=== PATIENT | male | born 1975 | race Caucasian/White ===

== ENCOUNTER 2021-04-24 14:55 | Emergency (ER) | payer SELFPAY ==
--- NOTE | 2021-04-24 18:28 | ER ---
Nurse's Notes [facility] Name: Kunal Wilson Age: 46 yrs Sex: Male : 1975 Arrival Date: 04/24/2021 Time: 14:57 Bed 18 Private MD: Diagnosis: Presentation: 04/24 15:13 Chief complaint: Patient states: Psoriasis to right foot, noticed rash around it last jl7 night and swelling up to calf. Coronavirus screen: At this time, the client does not indicate any symptoms associated with coronavirus-19. Ebola Screen: No symptoms or risks identified at this time. Initial Sepsis Screen: Does the patient meet any 2 criteria? No. Patient's initial sepsis screen is negative. Does the patient have a suspected source of infection? No. Patient's initial sepsis screen is negative. Risk Assessment: Do you want to hurt yourself or someone else? Patient reports no desire to harm self or others. Onset of symptoms was April 23, 2021. 15:13 Method Of Arrival: Ambulatory jl7 15:13 Acuity: SAL 3 jl7 Triage Assessment: 15:15 General: Appears in no apparent distress. uncomfortable, Behavior is calm, cooperative, jl7 appropriate for age. Pain: Complains of pain in right leg Pain currently is 5 out of 10 on a pain scale. Historical: - Allergies: 15:15 No Known Allergies; jl7 - PMHx: 15:15 Anxiety; psoriatic arthritis; psoriasis; jl7 - Immunization history:: Client reports having NOT received the Covid vaccine. - Social history:: Smoking status: Patient denies any tobacco usage or history of. Screenin:45 Abuse screen: Denies threats or abuse. Denies injuries from another. Nutritional tc5 screening: No deficits noted. Tuberculosis screening: No symptoms or risk factors identified. Fall Risk None identified. Assessment: 16:44 Derm: Reports redness, swelling to the RLE, states he has psoriasis, but states this is tc5 worse. Vital Signs: 15:13 BP 130 / 100; Pulse 84; Resp 17; Temp 98.9; Pulse Ox 100% ; Weight 77.11 kg; Height 5 jl7 ft. 11 in. (180.34 cm); Pain 5/10; 15:13 Body Mass Index 23.71 (77.11 kg, 180.34 cm) jl7 ED Course: 14:57 Patient arrived in ED. as 15:15 Triage completed. jl7 15:15 Arm band placed on right wrist. Patient placed in waiting room, Patient notified of jl7 wait time. 16:20 Saji Cano MD is Attending Physician. consuelo 16:44 Lennie Armstrong, RN is Primary Nurse. tc5 Administered Medications: No medications were administered Outcome: 18:05 Patient left the ED. aa5 18:05 Eloped from patient exam room, before seeing physician aa5 Signatures: Saji Cano MD MD kdr Martinez, Amelia as Calderon, Audri, RN RN aa5 Jennifer Esparza RN RN jlLennie Anthony, RN RN tc5 Corrections: (The following items were deleted from the chart) 15:17 15:15 PMHx: None; jl7 jl7 15:17 15:15 PMHx: Psoriasis; jl7 jl7 16:20 15:13 Acuity: SAL 4 jl7 jl7 18:27 18:27 Patient left the ED. aa5 aa5
[2021-04-24 18:42] VITALS: BP 130/100; TEMP 98.9; O2SAT 100
== END 2021-04-24 18:27 | disposition left against medical advice (07) ==
LOC: ER 14:55
DX: Z53.21 Procedure and treatment not carried out due to patient leaving prior to being seen by health care provider (principal)
CPT/HCPCS: 99281

== ENCOUNTER 2021-04-28 12:36 | Emergency (ER) | payer SELFPAY ==
[2021-04-28 13:47] LABS: Absolute Lymphocytes (CBC) 1.6 K/uL (0.7-4.9); Basophils % 0.8 % (0-1.3); Hematocrit 45.5 % (39.6-49.0); Lymphocytes % 24.8 % (15.3-44.8); MPV 7.7 fL (7.6-11.3); RBC Red Blood Cell Count 5.26 M/uL (4.33-5.43)
--- NOTE | 2021-04-28 14:51 | EDPHYS ---
Physician Documentation [facility] Name: Kunal Wilson Age: 46 yrs Sex: Male : 1975 Arrival Date: 04/28/2021 Time: 12:40 Bed 26 Private MD: ED Physician Samaria Kaba HPI: 04/28 13:25 This 46 yrs old Male presents to ER via Ambulatory with complaints of Leg jmm Pain. 13:25 The patient presents with pain, spasm. Onset: The symptoms/episode began/occurred jmm gradually, 1 week(s) ago. Modifying factors: The symptoms are alleviated by nothing. the symptoms are aggravated by. Associated signs and symptoms: Pertinent positives: swelling, Pertinent negatives fever. Treatment prior to arrival includes: no previous treatment. This is a 46-year-old male with history of anxiety, psoriasis the presents emerged part with complaints of right lower leg swelling which occurred after using new boots. Patient has had similar episodes in the past with previous psoriasis episodes.. Historical: - Allergies: 13:00 No Known Allergies; vg1 - Home Meds: 13:00 Lexapro Oral [Active]; vg1 - PMHx: 13:00 Anxiety; psoriasis; Psoriatic Arthritis; vg1 - PSHx: 13:00 None; vg1 - Immunization history:: Adult Immunizations up to date, Client reports having NOT received the Covid vaccine. - Social history:: Smoking status: Patient denies any tobacco usage or history of. ROS: 13:25 Constitutional: Negative for fever, chills, and weight loss, Cardiovascular: Negative jmm for chest pain, palpitations, and edema, Respiratory: Negative for shortness of breath, cough, wheezing, and pleuritic chest pain. 13:25 Skin: Positive for erythema. 13:25 All other systems are negative. Exam: 13:25 Constitutional: This is a well developed, well nourished patient who is awake, alert, jmm and in no acute distress. Head/Face: atraumatic. Eyes: EOMI, no conjunctival erythema appreciated ENT: Moist Mucus Membranes Neck: Trachea midline, Supple Chest/axilla: Normal chest wall appearance and motion. Cardiovascular: Regular rate and rhythm. No edema appreciated Respiratory: Normal respirations, no respiratory distress appreciated Abdomen/GI: Non distended, soft Back: Normal ROM 13:25 Skin: erythema noted to the right lower leg, scaling lesions noted along the extensor surface. 13:25 Neuro: Orientation: is normal, Mentation: is normal, Memory: is normal. 13:25 Psych: Behavior/mood is pleasant, cooperative. Vital Signs: 12:58 BP 149 / 94; Pulse 76; Resp 16; Temp 98.5; Pulse Ox 100% ; Weight 77.11 kg; Height 5 vg1 ft. 11 in. (180.34 cm); Pain 7/10; 13:35 BP 136 / 83; Pulse 67; Resp 18; Pulse Ox 100% on R/A; Pain 0/10; ld1 14:10 BP 136 / 92; Pulse 61; Resp 18; Pulse Ox 100% on R/A; Pain 0/10; ld1 12:58 Body Mass Index 23.71 (77.11 kg, 180.34 cm) vg1 MDM: 13:25 Patient medically screened. [facility] 14:49 Data reviewed: vital signs, nurses notes. Counseling: I had a detailed discussion with zahida the patient and/or guardian regarding: the historical points, exam findings, and any diagnostic results supporting the discharge/admit diagnosis, lab results, the need for outpatient follow up, to return to the emergency department if symptoms worsen or persist or if there are any questions or concerns that arise at home. ED course: Is alert and nontoxic in appearance in the ED. Most likely is a flare of psoriasis. Will treat with steroids oral and topical. Patient is otherwise advised to follow-up with dermatology and otherwise given strict return precautions. Patient understood and agrees plan of care.. 04/28 13:26 Order name: CBC with Diff [facility] 04/28 13:26 Order name: CBC with Automated Diff; Complete Time: 14:11 [facility] 04/28 13:26 Order name: Saline Lock; Complete Time: 13:29 [facility] Administered Medications: 14:51 Drug: Decadron - Dexamethasone 10 mg Route: IVP; Site: left antecubital; ld1 14:51 Follow up: Response: No adverse reaction ld1 Disposition: 18:33 Co-signature as Attending Physician, Samaria Kaba MD. ma2 Disposition Summary: 04/28/21 14:50 Discharge Ordered Location: Home [facility] Condition: Stable [facility] Diagnosis - Psoriasis, unspecified [facility] Followup: [facility] - With: Private Physician - When: 2 - 3 days - Reason: Recheck today's complaints, Continuance of care, Re-evaluation by your physician Discharge Instructions: - Discharge Summary Sheet [facility] - Psoriasis [facility] Forms: - Medication Reconciliation Form [facility] - Thank You Letter zahida - Antibiotic Education [facility] - Prescription Opioid Use [facility] Prescriptions: - triamcinolone acetonide 0.5 % Topical cream - apply 1 application by TOPICAL route 3 times per day; 1 tube; Refills: 0, [facility] Product Selection Permitted - Prednisone 20 mg Oral Tablet - take 3 tablets by ORAL route once daily for 12 days Please take three tabs a jmm day daily for 3 days, then take two tabs daily for 3 days, then take one tab daily for 3 days, then take one half tab daily for 3 days; 20 tablet; Refills: 0, Product Selection Permitted Signatures: Dispatcher [employer] EDMS Jagdeep King PA PA jmm Alzahri, Mohammad, MD MD ma2 Corazon Gates RN RN vg1 Demetria Luong RN RN ld1
--- NOTE | 2021-04-28 14:51 | ER ---
Nurse's Notes [facility] Name: Kunal Wilson Age: 46 yrs Sex: Male : 1975 Arrival Date: 04/28/2021 Time: 12:40 Bed 26 Private MD: Diagnosis: Psoriasis, unspecified Presentation: 04/28 12:58 Chief complaint: Patient states: Right leg pain for since 04/20/21, states leg is vg1 swollen compared to left leg. States has hx of psoriasis and it effects Right knee at times. Coronavirus screen: Vaccine status: Patient reports being unvaccinated. Client denies travel out of the [place] in the last 14 days. Ebola Screen: Patient negative for fever greater than or equal to 101.5 degrees Fahrenheit, and additional compatible Ebola Virus Disease symptoms. Initial Sepsis Screen: Does the patient meet any 2 criteria? No. Patient's initial sepsis screen is negative. Does the patient have a suspected source of infection? No. Patient's initial sepsis screen is negative. Risk Assessment: Do you want to hurt yourself or someone else? Patient reports no desire to harm self or others. Onset of symptoms was April 20, 2021. 12:58 Method Of Arrival: Ambulatory vg1 12:58 Acuity: SAL 3 vg1 Triage Assessment: 13:00 General: Appears in no apparent distress. uncomfortable, Behavior is calm, cooperative. vg1 Pain: Complains of pain in right leg. Historical: - Allergies: 13:00 No Known Allergies; vg1 - Home Meds: 13:00 Lexapro Oral [Active]; vg1 - PMHx: 13:00 Anxiety; psoriasis; Psoriatic Arthritis; vg1 - PSHx: 13:00 None; vg1 - Immunization history:: Adult Immunizations up to date, Client reports having NOT received the Covid vaccine. - Social history:: Smoking status: Patient denies any tobacco usage or history of. Screenin:35 Abuse screen: Denies threats or abuse. Denies injuries from another. Nutritional ld1 screening: No deficits noted. Tuberculosis screening: No symptoms or risk factors identified. Fall Risk None identified. Assessment: 13:35 General: Appears in no apparent distress. comfortable, Behavior is calm, cooperative, ld1 appropriate for age. Pain: Denies pain. Neuro: Level of Consciousness is awake, alert, obeys commands, Oriented to person, place, time, situation, Appropriate for age. Cardiovascular: Capillary refill < 3 seconds Patient's skin is warm and dry. Respiratory: Airway is patent Respiratory effort is even, unlabored, Respiratory pattern is regular, symmetrical. GI: Abdomen is flat, non-distended. : No signs and/or symptoms were reported regarding the genitourinary system. EENT: No signs and/or symptoms were reported regarding the EENT system. Derm: Skin is red, Wound noted right kilpatrick, anterior aspect of right ankle and dorsum of right foot Wound is Pt reports cellulitis to right lower leg, foot and ankle. Denies pain at this time. Reports itching. Musculoskeletal: No signs and/or symptoms reported regarding the musculoskeletal system. 14:10 Reassessment: Patient appears in no apparent distress at this time. Patient is alert, ld1 oriented x 3, equal unlabored respirations, skin warm/dry/pink. Vital Signs: 12:58 BP 149 / 94; Pulse 76; Resp 16; Temp 98.5; Pulse Ox 100% ; Weight 77.11 kg; Height 5 vg1 ft. 11 in. (180.34 cm); Pain 7/10; 13:35 BP 136 / 83; Pulse 67; Resp 18; Pulse Ox 100% on R/A; Pain 0/10; ld1 14:10 BP 136 / 92; Pulse 61; Resp 18; Pulse Ox 100% on R/A; Pain 0/10; ld1 12:58 Body Mass Index 23.71 (77.11 kg, 180.34 cm) vg1 ED Course: 12:40 Patient arrived in ED. mr 13:00 Triage completed. vg1 13:00 Arm band placed on. vg1 13:02 Jagdeep King PA is PHCP. [facility] 13:02 Samaria Kaba MD is Attending Physician. [facility] 13:28 Demetria Luong, ANDERSON is Primary Nurse. ld1 13:35 Patient has correct armband on for positive identification. Placed in gown. Bed in low ld1 position. Call light in reach. Side rails up X2. Pulse ox on. NIBP on. Door closed. Noise minimized. Warm blanket given. 13:35 CBC with Automated Diff Sent. ld1 13:35 CBC with Diff Sent. ld1 13:35 No provider procedures requiring assistance completed. Inserted saline lock: 20 gauge ld1 in left antecubital area, using aseptic technique. Blood collected. 15:10 IV discontinued, intact, bleeding controlled, No redness/swelling at site. ld1 Administered Medications: 14:51 Drug: Decadron - Dexamethasone 10 mg Route: IVP; Site: left antecubital; ld1 14:51 Follow up: Response: No adverse reaction ld1 Outcome: 14:50 Discharge ordered by . singh 15:10 Discharged to home ambulatory. ld1 15:10 Condition: stable 15:10 Discharge instructions given to patient, Instructed on discharge instructions, follow up and referral plans. medication usage, Demonstrated understanding of instructions, follow-up care, medications, Prescriptions given X 2. 15:10 Patient left the ED. ld1 Signatures: Jagdeep King PA PA jmm Rivera, Mary mr Garcia, Victoria, RN RN vg1 Demetria Luong, RN RN ld1 Corrections: (The following items were deleted from the chart) 13:00 12:58 Onset of symptoms was April 28, 2021 vg1 vg1
[2021-04-28] MEDS ORDERED: dexAMETHasone 10 MG/ML VIAL ONE (14:59)
[2021-04-28 15:14] VITALS: TEMP 98.5; O2SAT 100
[2021-04-28 15:17] VITALS: BP 136/92
== END 2021-04-28 15:10 | disposition home or self-care (01) ==
LOC: ER 12:36
DX: L40.9 Psoriasis, unspecified (principal); F41.9 Anxiety disorder, unspecified
CPT/HCPCS: 36415; 85025; 96374; 99284; J1100